=== PATIENT | female | born 1980 | race Two or more races ===

== ENCOUNTER → 2024-05-28 | Day surgery (SDC) | payer MEDICAID, SELFPAY ==
--- NOTE | 2024-05-25 07:28 | EKG_ITS ---
[facility] Test Date: 2024-05-25 Pat Name: DES YIN Department: Room: - Gender: Female Product Support Rep: RT STUDENT : 1980 Requested By: Ronald Alcantar Order Number: [id number] Reading MD: Ronald Alcantar Measurements Intervals [place] Rate: 75 P: 41 [place]: 158 QRS: 4 QRSD: 80 T: 28 QT: 378 QTc: 424 Interpretive Statements SINUS RHYTHM LOW QRS VOLTAGE IN PRECORDIAL LEADS [QRS DEFLECTION < 1.0 mV IN CHEST LEADS] Compared to ECG 06/02/2017 07:36:26 Low QRS voltage now present Left ventricular hypertrophy no longer present ST (T wave) deviation no longer present /store/S0/[id number]/ecg/[id number].pdf
[2024-05-25 11:41] VITALS: BMI 28.3
[2024-05-25 12:01] LABS: Collection Type, Urine Clean Catch
[2024-05-25 12:58] LABS: Basophils # (Auto) 0.1 Thou/mm3 (0.0-0.2); Basophils % (Auto) 1 % (0-2.5); Eosinophils # (Auto) 0.1 Thou/mm3 (0.0-0.5); Eosinophils % (Auto) 1 % (0-10); Hematocrit 38.9 % (36.0-46.0); Hemoglobin 12.8 g/dL (12.0-16.0); Immature Granulocytes % (Auto) 0 % (0-0); Immature Granulocytes Auto 0.02 Thou/mm3 (0.00-0.00); Lymphocytes # (Auto) 1.2 Thou/mm3 (1.0-4.8); Lymphocytes % (Auto) 14 % (10-50); Mean Corpuscular HGB Conc 32.9 g/dl (31.0-37.0); Mean Corpuscular Hemoglobin 30.8 pg (25.0-35.0); Mean Corpuscular Volume 94 fL (80-100); Monocytes # (Auto) 0.6 Thou/mm3 (0.0-0.8); Monocytes % (Auto) 7 % (0-12); Neutrophils # (Auto) 6.6 Thou/mm3 (1.8-7.7); Neutrophils % (Auto) 78 % (37-80); Nucleated Red Blood Cell % 0 /100 WBC (0); Platelet Count 372 Thou/mm3 (140-440); RDW Standard Deviation 42.5 fL (36.4-46.3); Red Blood Count 4.15 Miln/mm3 (4.00-5.20); White Blood Count 8.6 Thou/mm3 (3.6-11.0)
[2024-05-25 13:09] LABS: Amorphous Crystals,Urine Present (Absent); Bilirubin,Urine Negative (Negative); Blood,Urine 1+ (Negative); Color,Urine Yellow (Lt Yel-Yel); Glucose, Urine Negative (Negative); Ketones,Urine Negative (Negative); Leukocyte Esterase,Urine Positive (Negative); Nitrite,Urine Negative (Negative); PH,Urine 7.5 (5.0-7.0); Protein,Urine Trace (Neg - Trace); RBC,Urine 17 /hpf (0-3); Specific Gravity,Urine 1.028 (1.001-1.035); Squamous Epithelial Cell,Urine 8 /hpf (0-5); Urobilinogen,Urine Negative mg/dL (0.0-1.0); WBC,Urine 222 /hpf (0-5)
[2024-05-25 13:14] LABS: Clarity,Urine Turbid (Clear/Hazy)
[2024-05-25 13:15] LABS: HCG,Qualitative Serum Negative
[2024-05-25 13:21] LABS: Alanine Aminotransferase 21 U/L (10-49); Albumin, Serum 4.5 gm/dL (3.5-5.0); Albumin/Globulin Ratio 1.5 (1.2-2.2); Alkaline Phosphatase 49 U/L (46-116); Anion Gap 10 (7-16); Aspartate Amino Transferase 14 U/L (0-34); BUN/Creatinine Ratio 11 Ratio (12-20); Bilirubin,Total 0.5 mg/dL (0.3-1.2); Blood Urea Nitrogen 9 mg/dL (9-23); Calcium 9.2 mg/dL (8.3-10.6); Calcium (Corrected) 9.2 mg/dL (8.5-10.1); Carbon Dioxide 27.3 mMol/L (20.0-31.0); Chloride 103 mMol/L (98-107); Creatinine (Component) 0.8 mg/dL (0.6-1.3); Estimated Creatinine Clearance 88.9 mL/min (>60); Glucose 94 mg/dL (74-106); Osmolality,Calculated 278 (275-295); Partial Thromboplastin Time 25.9 Seconds (22.0-36.0); Potassium 3.6 mMol/L (3.4-5.1); Prothrombin Time 10.8 Seconds (9.0-12.2); Sodium 140 mMol/L (136-145); Total Protein 7.5 gm/dL (5.7-8.2); eGFR > 60 See Note
[2024-05-28 10:08] VITALS: BP 131/88; PULSE 85; RESP 21; TEMP 36.9; O2SAT 99; BMI 27.1
--- NOTE | 2024-05-28 10:27 | PD.SUROPNT ---
Date of Procedure 05/28/24 Pre Op Diagnosis Internal and external hemorrhoids and fissure in ano Post Op Diagnosis Same Procedure Patient was scheduled for hemorrhoidectomy and fissurectomy but that last-minute in the preop area patient refused to have surgery and walked away because she said her son is not at home she will be contacted by the office later. Findings Surgery was not done Procedure Description Procedure was not done and patient canceled at last minute Anesthesia none Pathology / specimen None Estimated Blood Loss 0 Condition Stable Disposition other (Patient discharged herself) Surgeon Ronald Alcantar MD Surgical Staff Operation Date: 05/28/24 11:45 <No data on this case meets the specified criteria> Surgeon Ronald Alcantar MD
--- NOTE | 2024-05-28 10:33 | SUR.PREOP ---
pt in room and dressed. states she is scared and does not want surgery. dr dyson at bedside. iv removed and pt cancelled.
--- NOTE | 2024-05-28 10:37 | SUR.PREOP ---
left with all belongings
== END | disposition left against medical advice (07) ==
LOC: S2EX 05-30 08:29
PROVIDERS: Anesthesiology; PCP Family Medicine; Referring Provider Specialist; Visit Provider Specialist
PROC: (CPT 46262; principal; 2024-05-28 11:30)
DX: K64.4 Residual hemorrhoidal skin tags (principal); K64.8 Other hemorrhoids; K60.2 Anal fissure, unspecified
CPT/HCPCS: 46262; 36415; 80053; 81001; 84703; 85025; 85610; 85730; 93005; A9270